=== PATIENT | female | born 1975 | race Caucasian/White ===

== ENCOUNTER → 2020-02-04 14:58 | Outpatient (BNVA) | payer SELFPAY | PROVIDERS: Visit Provider Emergency Medicine | DX: R50.9 Fever, unspecified (principal); R11.0 Nausea; K52.9 Noninfective gastroenteritis and colitis, unspecified | CPT/HCPCS: 87400 ==

== ENCOUNTER 2022-09-29 11:45 | Emergency (ER) | payer SELFPAY ==
[2022-09-29 11:50] VITALS: BP 209/106; PULSE 68; RESP 16; TEMP 36.4; O2SAT 97
--- NOTE | 2022-09-29 12:22 | XRR_ITS ---
PROCEDURE INFORMATION: Exam: XR Left Shoulder Exam date and time: 09/29/2022 1:05 PM Age: 47 years old Clinical indication: Pain; Shoulder; Left; Additional info: Left shoulder pain after lifting object TECHNIQUE: Imaging protocol: Radiologic exam of the Left shoulder. Views: 2 or more views. COMPARISON: No relevant prior studies available. FINDINGS: Bones/joints: Normal. Soft tissues: Normal. XR/XR shoulder LT min 2V* [id number] IMPRESSION: No acute findings.
--- NOTE | 2022-09-29 12:45 | ED_ITS ---
HPI - Extremity Problem General: Chief complaint: Extremity Problem,Nontraumatic Stated complaint: left arm pain Time Seen by Provider: 09/29/22 12:10 History of Present Illness: Patient is a 47-year-old female comes to the ED with left shoulder pain. Pain occurred just prior to arrival. Patient says she was carrying a bowl in her left arm when she internally rotated left arm to place bowl on counter she felt a sharp pain in her shoulder that radiated down into her arm. It lasted for several minutes and she states she was not able to lift or raise her arm at all at that time. Pain has completely resolved and she has full range of motion in left shoulder currently. Associated symptoms: Deny chest pain, fever(s) or rash Review of Systems Const: Denies: fever(s), chills or fatigue Eyes: Denies: change in vision or eye discomfort ENMT: Denies: throat pain, odynophagia, nasal discharge or nasal congestion Card: Denies: chest pain, palpitations, edema, swelling of feet/ankles, dyspnea on exertion or orthopnea Resp: Denies: dyspnea, productive cough or non-productive cough GI: Denies: abdominal pain, nausea, vomiting, diarrhea, constipation or hematochezia : Denies: flank pain, dysuria or hematuria Musc: Reports: extremity pain (Left shoulder); Denies: neck pain, back pain or extremity swelling Skin/Breast: Denies: rash or new lesions Neuro: Denies: headache(s), numbness in extremities or weakness in extremities PFS ED PFSH: Medical History Major depression Surgical History H/O section H/O tympanostomy S/P tonsillectomy and adenoidectomy Family History Mother Hypertension Diabetes Social History Smoking and tobacco status: current every day smoker smokeless tobacco Second hand smoke exposure: No Alcohol intake: never Desire information about alcohol rehabilitation?: No Desire information about substance/drug rehabilitation?: No History of recent travel: No Current gender identity: Female Physical Exam Const: COMMON NORMALS: no acute distress, patient oriented x3 and alert GENERAL APPEARANCE: cooperative and comfortable HENMT: COMMON NORMALS: normocephalic HEAD & SCALP: normocephalic MOUTH: Normal oral and palatal mucosa present THROAT: posterior oropharynx normal and uvula midline Neck/C-Spine: COMMON NORMALS: supple GENERAL: Yes normal visual inspection Resp: COMMON NORMALS: normal respiratory effort, No retractions, No use of accessory muscles and clear to auscultation bilaterally AUSCULTATION: clear to auscultation bilaterally Cardio: COMMON NORMALS: regular rate, regular rhythm, S1 normal heart sound present, S2 normal heart sound present, No gallops present (Cardio), No clicks present (Cardio), No murmurs present (Cardio) and Peripheral pulses 2+ throughout RATE: regular rate RHYTHM: regular rhythm HEART SOUNDS: S1 normal heart sound present and S2 normal heart sound present PERIPHERAL PULSES: Peripheral pulses 2+ throughout GI: COMMON NORMALS: Normal to inspection, nondistended, normoactive bowel soun ds present, Soft to palpation, non-tender and no masses PALPATION: Yes Soft to palpation : COMMON NORMALS: Yes no CVA tenderness BLADDER/KIDNEY EXAM: Yes no CVA tenderness Back/Pelvis: COMMON NORMALS: no CVA tenderness Extremity: NARRATIVE EXTREMITY EXAM: Left shoulder?AC joint tenderness. Patient has full range of motion in left shoulder. Neurovascular intact distally. Neuro: COMMON NORMALS: patient oriented x3 SENSORIUM/ORIENTATION: Yes alert GAIT: Yes Normal gait present Skin: GENERAL SKIN EXAM: dry skin Course Vital Signs: Vital signs: Vital Signs Temperature 97.6 F 09/29/22 11:50 Pulse Rate 68 09/29/22 11:50 Respiratory Rate 16 09/29/22 13:57 Blood Pressure 174/117 09/29/22 13:57 Pulse Oximetry 97 09/29/22 11:50 Oxygen Delivery Me thod 09/29/22 11:50 MDM - Extremity (Nontraumatic) Medical Decision Making Patient is a 47-year-old female comes to the ED with left shoulder pain. Pain occurred just prior to arrival. Patient says she was carrying a bowl in her left arm when she internally rotated left arm to place bowl on counter she felt a sharp pain in her shoulder that radiated down into her arm. Vital stable. Patient appears nontoxic in no acute distress or pain. Left shoulder?AC joint tenderness. Patient has full range of motion in left shoulder. Neurovascular intact distally. X-ray left shoulder showed no acute fractures or findings. Patient was diagnosed with left shoulder pain and was stable for discharge home. She was told to follow-up with her PCP in the next week for reevaluation. Patient understood and agreed with plan. Lab Data Radiology Impressions Shoulder X-Ray 09/29/22 12:22 IMPRESSION: No acute findings. Discharge Plan Discharge Patient Disposition: Home Clinical Impression: Left shoulder pain Qualifiers: Chronicity: acute Qualified Code(s): M25.512 - Pain in left shoulder Condition: Stable Prescriptions: No Action ondansetron 4 mg tablet,disintegrating 4 mg PO Q6H PRN (Reason: nausea and vomiting) Qty: 12 0RF Rx Instructions: 340b please fluoxetine 10 mg tablet See Rx Instructions .ROUTE .COMPLEX Qty: 30 0RF Dose Instruction: TAKE ONE TABLET BY MOUTH DAILY FOR 30 DAYS Rx Instructions: TAKE ONE TABLET BY MOUTH DAILY FOR 30 DAYS Discharge Orders: Discharge ED (Routine); Ordered 09/29/22 Ordered By: Santi Rosales Discharge Diet: Regular Discharge Activity: Increase activity as tolerated Activity Restrictions/Additional Instructions: Follow-up with medical provider as directed in the next 5 to 7 days for reevaluation. Take [id number] Tylenol or ibuprofen for pain. Return to the ER or your medical provider if condition worsens. Please read and understand discharge instructions. Thank you for choosing [facility] for your healthcare needs today. Please realize this is an emergency room and that we are providing you with a medical screening exam and this may not be complete and all inclusive of all the testing and or work up that you may need to determine your ailment or severity of your illness. It is very important that you follow up as instructed or that you return to the Emergency Department should you have concerns or if your condition changes or worsens in any way. Coding Level of Care Code ED Captain Waiter/Waitress for Dale Finn Exam Comprehensive
[2022-09-29 13:57] VITALS: BP 174/117; RESP 16
== END 2022-09-29 13:58 | disposition home or self-care (01) ==
PROVIDERS: Emergency Provider Physician Assistant
DX: M25.512 Pain in left shoulder (principal); F17.220 Nicotine dependence, chewing tobacco, uncomplicated
CPT/HCPCS: 73030; 99283